=== PATIENT | male | born 1980 | race Two or more races ===

== ENCOUNTER 2018-01-29 17:31 | Emergency (ER) | payer OTHER ==
[~2018-01-29] VITALS: Ht 177.8 cm; Wt 72.6 kg
--- NOTE | 2018-01-29 17:35 | NUR ---
bb lap[facility] from custodial: back pain. PATIENT IS AOX3, HAVING HEROIN WITHDRAWAL. ON ROOM AIR AND TOLERATED WELL, NO DISTRESS NOTED. [employer] OFFICER AT BEDSIDE. AWAITING MD FOR ORDERS.
[2018-01-29] MEDS ORDERED: hydrOXYzine HCL INJ 50 MG/ML VIAL IM ONE (18:30)
[2018-01-29] MEDS ORDERED: hydrOXYzine 10 MG TABLET PO ONE (19:00)
[2018-01-29] MEDS ORDERED: hydrOXYzine PAMOATE 50 MG CAPSULE PO ONE (19:00)
--- NOTE | 2018-01-29 19:00 | NUR ---
Patient discharged [employer] IN CUSTODY in stable condition. Written and verbal after care instructions given. Patient verbalizes understanding of instruction. PT AMBULATED OUT WITH A STEADY GAIT. VSS. RESP EVEN AND UNLABORED. NAD NOTED.
[2018-01-29 19:01] VITALS: BP 135/71
== END 2018-01-29 19:00 ==
LOC: ER 17:33
DX: F11.23 Opioid dependence with withdrawal (principal)
CPT/HCPCS: A4606; J3410; Q0177; Z7610